=== PATIENT | male | born 1990 | race African-American/Black ===

== ENCOUNTER 2020-04-05 19:18 | Emergency (ER) | payer MEDICAID ==
[~2020-04-05] VITALS: Ht 180.3 cm; Wt 90.0 kg
[2020-04-05] MEDS ORDERED: MORPHINE SULFATE 4 MG/ML CPJ (NOT FOR IM USE) IV STA (19:25)
[2020-04-05] MEDS ORDERED: ONDANSETRON HCL 4MG/2ML INJ IV STA (19:25)
[2020-04-05] MEDS ORDERED: SODIUM CHLORIDE 0.9% 1,000 ML IV ONE (19:25)
[2020-04-05] MEDS ORDERED: TETANUS, DIPHTHERIA, PERTUSSIS VAC/PF 0.5ML (>7YR OLD) IM ONE (19:30)
[2020-04-05] MEDS ORDERED: CEFAZOLIN 1000MG PREMIX 50 ML IV ONE (19:30)
[2020-04-05 19:46] LABS: BASOPHILS % 1.1 % (0.0-2.0); EOSINOPHILS % 1.6 % (0.0-5.0); HEMATOCRIT. 49.4 % (42.0-52.0); HEMOGLOBIN. 16.3 g/dL (14.0-18.0); LYMPHOCYTES % 42.1 % (20.0-50.0); MEAN CORPUSCULAR HEMOGLOBIN 29.7 pg (28.0-32.0); MEAN CORPUSCULAR VOLUME 90.3 fL (80.0-94.0); MEAN PLATELET VOLUME 10.3 fl (7.4-10.4); MONOCYTES % 9.2 % (2.0-8.0); PLATELET 239 x1000/uL (130-400); RED BLOOD CELL COUNT 5.48 mill/uL (4.7-6.1); RED CELL DISTRIBUTION WIDTH 12.9 % (11.6-14.6)
[2020-04-05 19:52] LABS: CHLORIDE 104 mEq/L (98-107)
[2020-04-05 19:57] LABS: ETHANOL BLOOD < 10 mg/dL
[2020-04-05 20:03] LABS: PROTHROMBIN TIME 10.3 sec (9.6-11.0)
[2020-04-05 20:44] LABS: OPIATES URINE SCREEN PRESUMTIVE POSITIVE (NEGATIVE); PHENCYCLIDINE URINE SCREEN NEGATIVE (NEGATIVE)
[2020-04-05 20:45] LABS: *AMPHETAMINES SCREEN URINE NEGATIVE (NEGATIVE); *BARBITURATES SCREEN URINE NEGATIVE (NEGATIVE); *BENZODIAZEPINES SCREEN URINE NEGATIVE (NEGATIVE); *COCAINE SCREEN URINE NEGATIVE (NEGATIVE); CANNABINOID URINE SCREEN NEGATIVE (NEGATIVE); METHADONE URINE SCREEN NEGATIVE (NEGATIVE)
== END 2020-04-05 20:45 | disposition short-term general hospital (02) ==
LOC: ER 19:18
DX: S82.141A Displaced bicondylar fracture of right tibia, initial encounter for closed fracture (principal); X95.9XXA Assault by unspecified firearm discharge, initial encounter; Y93.89 Activity, other specified; Y92.9 Unspecified place or not applicable
CPT/HCPCS: 36415; 73552; 73560; 80053; 80305; 80320; 85025; 85610; 86850; 86900; 86901; 90471; 90715; 96365; 96375; 99285; J0690; J2270; J2405; J7030; G0480